=== PATIENT | male | born 1995 | race African-American/Black ===

== ENCOUNTER 2021-05-07 16:34 | Emergency (ER) | payer OTHER ==
[~2021-05-07] VITALS: Ht 170.2 cm; Wt 58.1 kg
[2021-05-07 18:25] LABS: Source, Urine Clean Catch
[2021-05-07 18:32] LABS: Bilirubin, Urine Neg (Neg); Blood, Urine Neg (Neg); Glucose Qualitative, Urine Neg (Neg); Ketones, Urine Neg (Neg); Leukocyte Esterase, Urine 1+ (Neg); Nitrite, Urine Neg (Neg); Protein, Urine 1+ (Neg); Urobilinogen, Urine NORM (Normal)
[2021-05-07 18:46] LABS: Appearance, Urine Clear (Clear); Color, Urine Yellow (P-Yellow)
[2021-05-07 18:47] LABS: Bacteria Rare /hpf; Mucus Light (0-Heavy); Red Blood Cells, Urine Not Seen /hpf (0-2); Squamous Epithelial Cells Few /hpf (Few)
[2021-05-07] MEDS ORDERED: METR500 PO (19:34)
[2021-05-11 00:07] LABS: CHLAMYDIA BY NAA Negative (Negative); GONOCOCCUS BY NAA Negative (Negative); TRICH VAG BY NAA Negative (Negative)
== END 2021-05-07 19:36 | disposition home or self-care (01) ==
LOC: ER 16:34
PROVIDERS: Student in an Organized Health Care Education/Training Program
DX: Z20.2 Contact with and (suspected) exposure to infections with a predominantly sexual mode of transmission (principal); F17.200 Nicotine dependence, unspecified, uncomplicated
CPT/HCPCS: 81001; 87491; 87591; 87661; 96372; 99283-25; A9270; J0696